=== PATIENT | male | born 2005 | race Caucasian/White ===

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

== ENCOUNTER 2025-04-04 10:08 | Emergency (ER) | payer BC, SELFPAY ==
[2025-04-04 10:19] VITALS: BP 120/72; PULSE 67; TEMP 36.7; O2SAT 100; BMI 27.8
--- OUTSIDE RECORDS SUMMARY | 2025-04-04 10:21 | XMS_ITS | Clinical Summary ---
Author Organization [facility] Address [address] [place] [address] Care Team Providers Care Gamma Facilities Operator Name Role Phone Monie Milian NP Unavailable [phone] Barry Nieto MD Primary Care Provider [phone] Allergies No known active allergies Medications albuterol HFA 90 mcg/act inhaler Inhale 2 puffs every 6 (six) hours if needed for wheezing or shortness of breath (and 15 minutes prior to physical activity) Active Active Problems Problem Noted Date Diagnosed Date Seasonal allergic rhinitis due to pollen 024 IVET (generalized anxiety disorder) 09/28/2023 Vitamin D deficiency 09/28/2023 Obesity (BMI 30-39.9) 09/28/2023 Annual physical exam 09/28/2023 Assessment & Plan (04/19/2024 12:10 PM EDT): Form completed. Discussed proper diet and regular aerobic exercise. Need aerobic exercise 5-6 days a week for 30 minutes at a time. Smaller portions and limit total calories. Colonoscopy after age 45. Tetanus every 10 years. Advised not to smoke. Assessment & Plan (09/28/2023 2:42 PM EST): Reviewed Ht/Wt/BMI Recommend eye exam yearly Recommend dental exams twice a year Balance work/leisure activities Exercises is recommended most days of the week (appropriate as chronic conditions allow) Follow up yearly and prn Lesion of skin of nose 09/28/2023 Assessment & Plan (09/28/2023 2:44 PM EST): Pt reports this has been present over a year, and is getting larger It appears to look like a white head , however pt states when attempts to express something out with squeezing it, nothing comes out Family is requesting a referral to dermatology Resolved Problems Problem Noted Date Diagnosed Date Resolved Date Elevated CPK 09/28/2023 09/28/2023 Knee pain, right anterior 09/28/2023 Family History Medical History Relation Name Comments No Known Problems Father No Known Problems Mother Relation Name Status Comments Father Mother Social History Tobacco Use Types Packs/Day Years Used Date Smoking Tobacco: Never Tobacco Cessation:Counseling Given: Not Answered PHQ-2 Answer Date Recorded Patient Health Questionnaire-2 Score 0 09/28/2023 Sex and Gender Information Value Date Recorded Sex Assigned at Not on file Legal Sex Male 8:28 PM EDT Gender Identity Not on file Sexual Orientation Not on file Last Filed Vital Signs Vital Sign Reading Time Taken Comments Blood Pressure 116/52 04/19/2024 11:36 AM EDT Pulse 70 04/19/2024 11:36 AM EDT Temperature 36.4 C (97.5 F) 04/19/2024 11:36 AM EDT Respiratory Rate 20 04/19/2024 11:36 AM EDT Oxygen Saturation 98% 04/19/2024 11:36 AM EDT Inhaled Oxygen Concentration - - Weight 89.8 kg (198 lb) 04/19/2024 11:36 AM EDT Height 175.3 cm (5' 9 ) 04/19/2024 11:36 AM EDT Body Mass Index 29.24 04/19/2024 11:36 AM EDT Body Mass Index Percentile 94.85% 04/19/2024 11: 36 AM EDT Growth Chart: CDC (Boys, 2-2 0 Years) Plan of Treatment Health Maintenance Due Date Last Done Comments Influenza Vaccine Discontinued Insurance BS BS Care Teams Gamma Facilities Operator Relationship Specialty Start Date End Date Barry Nieto MD PCP - General Family Medicine 09/18/23 Monie Milian NP Nurse Practitioner Family Medicine 09/18/23
--- OUTSIDE RECORDS SUMMARY | 2025-04-04 10:21 | XMS_ITS | Encounter Summary ---
Author Organization [facility] Address [address] [place] [address] Care Team Providers Care Methods Specialist Name Role Phone Monie Milian NP Unavailable [phone] Barry Nieto MD Primary Care Provider [phone] Barry Nieto MD Unavailable Encounter Details Date Type Department Care Team (Late st Contact Info) Description 07/14/2024 Orders Only [facility] [address] [place] [address] Azael Mendoza MD [address] [place] [address] Social History Tobacco Use Types Packs/Day Years Used Date Smoking Tobacco: Never PHQ-2 Answer Date Recorded Patient Health Questionnaire-2 Score 0 09/28/2023 Sex and Gender Information Value Date Recorded Sex Assigned at Not on file Legal Sex Male 8:28 PM EDT Gender Identity Not on file Sexual Orientation Not on file documented as of this encounter Plan of Treatment Not on file documented as of this encounter Procedures Procedure Name Priority Date/Time Associated Diagnosis Comments XR HAND 3+ VIEWS LEFT Routine 07/13/2024 8:41 AM EST documented in this encounter Results * XR hand 3+ views left (07/13/2024 8:41 AM EST) Anatomical Region Laterality Modality Upper Extremities, Hand Left Radiogra phic Imaging Azael Mendoza MD IMG XR PROCEDURES Final Resul t documented in this encounter Visit Diagnoses Not on filedocumented in this encounter Care Teams Methods Specialist Relationship Specialty Start Date End Date Barry Nieto MD PCP - General Family Medicine 09/18/23 Barry Nieto MD [address] [place] [address] PCP - [facility] 05/27/24 Monie Milian NP Nurse Practitioner Family Medicine 09/18/23 documented as of this encounter
--- OUTSIDE RECORDS SUMMARY | 2025-04-04 10:30 | XMS_ITS | CCD ---
Author Organization [facility] Care Team Providers Care Vocal Music Teacher Name Role Phone MD Barry Rodriguez Primary Care Provider [phone] DO Oleg Booth Emergency Provider [phone] Leandra Belle Unavailable MARKER, DR ROWE Attending Unavailable MARKER, DR ROWE Consulting Unavailable NADERER, DR BARRY Wesley Primary Care Unavailable MARKER, DR ROWE Admitting Unavailable AICHHOLZ, MONTY DACOSTA Admitting Unavailable NADERER, DR BARRY Wesley Primary Care Unavailable AICHKYARA, MONTY DACOSTA Attending Unavailable AICHKYARA, MONTY DACOSTA Consulting Unavailable JENNIFER, DR BARRY Wesley Primary Care Unavailable SHERRILL, DR JOLYNN Diaz Admitting Unavailable SHERRILL, DR JLOYNN Diaz Attending Unavailable SHERRILL, DR JOLYNN Diaz Consulting Unavailable ROSLYN, DR CASTILLO Diaz Consulting Unavailable Tesha Negron Unavailable MONIE MILIAN Attending Unavailable NADEREEmily, BARRY Attending Unavailable Aichholmarko TOOL AND CUTTER GRINDER, Monie Unavailable Barry Rodriguez MD Primary Care Provider Rukhsana TOOL AND CUTTER GRINDER, Monie Unavailable Medications Current Medications Medication Drug Class(es) Dates Sig (Normalized) Sig (Original) [id number] 200 actuat albuterol 0.09 mg/actuat metered dose inhaler (3 sources) beta2-Adrenergic Agonist take 2 puff(s) by inhalation every six hours for wheezing albuterol HFA 90 mcg/act inhaler Inhale 2 puffs every 6 (six) hours if needed for wheezing or shortness of breath (and 15 minutes prior to physical activity) Active diphenhydrAMINE (1 source) Histamine-1 Receptor Antagonist Benadryl Active [id number] 0.3 ml EPINEPHrine 1 mg/ml auto-injector (1 [...] with dinner for 6 days Jan, Active Completed/Discontinued Medications Medication Drug Class(es) Dates Sig (Normalized) Sig (Original) fluticasone propionate 0.05 mg/actuat metered dose nasal spray (1 source) Corticosteroid Start: 11-05-2023 End: 01-03-2025 take 1 spray(s) nasal route once daily Fluticasone Propionate 50 mcg/actuation spray,suspension Discontinued 2 SPRAY INTRANASAL Daily November 05, 2023 12:00am January 03, 2025 12:10pm administer into each nostril predniSONE 20 mg oral tablet (3 sources) Start: 11-05-2023 End: 01-03-2025 take 1 tablet by mouth twice daily Prednisone 20 mg tablet Discontinued 20 MG PO Twice daily 04 30November 05, 2023 12:00am January 03, 2025 12:10pm Start: 11-03-2022 prednisone 10 MG as directed with food Orally 5 tablet x 2 days, 4 tablet x2 days, 3 tablet x2 days, 2 tablet x 2 days, 1 tablet x 2 days for 10 days Oct, Active Start: 02-25-2022 take 1 tablet by zaheer once daily, then take 1 tablet by mouth once daily at mealtime predniSONE 20 MG 60 mg daily for 3 days then 40mg daily for 3 days then 1 tablet daily for 3 days then 20mg daily fo Orally take with food for 9 days Feb, Active triamcinolone acetonide 40 mg/ml injectable suspension (4 sources) Corticosteroid Start: 02-20-2022 Kenalog-40 Jan, 40 mg Problems Active Problems Problem Classification Problem Date Documented Da te Episodic/Chronic Administrative/social admission (1 source) Encounter for pre-employment examination Episodic Anxiety disorders (3 sources) Generalized anxiety disorder; Translations: [Generalized anxiety disorder] Onset: 09-28-2023 09-28-2023 Chronic Nutritional deficiencies (3 sources) Vitamin D deficiency; Translations: [Vitamin D deficiency, unspecified] Onset: 09-28-2023 09-28-2023 Chronic Other nutritional; endocrine; and metabolic disorders (3 sources) Body mass index 30+ - obesity; Translations: [Obesity, unspecified] Onset: 09-28-2023 09-28-2023 Chronic Other skin disorders (1 source) Rash and other nonspecific skin eruption Episodic Other upper respiratory disease (3 sources) Allergic rhinitis due to pollen; Translations: [Allergic rhinitis due to pollen] Onset: 09-28-2023 09-28-2023 Chronic Other upper respiratory infections (1 source) Sore throat symptom; Translations: [Acute pharyngitis, unspecified] 11-05-2023 Episodic Past or Other Problems Problem Classification [...] Episodic E Codes: Unspecified (1 source) Activity, brazilian tackle football; Translations: [ACTIVITY FRENCH TACKLE FOOTBALL] Onset: 05-17-2021 Episodic Fever of unknown origin (1 source) Fever, unspecified; Translations: [FEVER UNSPECIFIED] Onset: 05-17-2021 Episodic Other liver diseases (3 sources) Increased creatine kinase level; Translations: [Abnormal levels of other serum enzymes] Onset: 09-28-2023 Resolved: 09-28-2023 09-28-2023 Episodic Other non-traumatic joint disorders (3 sources) Anterior knee pain; Translations: [Pain in right knee] Onset: 09-28-2023 09-28-2023 Episodic Other skin disorders (3 sources) Lesion of skin of nose; Translations: [Disorder of the skin and subcutaneous tissue, unspecified] Onset: 09-28-2023 09-28-2023 Episodic Spondylosis; intervertebral disc disorders; other back problems (3 sources) Cervicalgia; Translations: [CERVICALGIA] Onset: 05-16-2021 Episodic Sprains and strains (2 sources) Sprain of joints and ligaments of unspecified parts of neck, initial encounter; Translations: [Strain of muscle, fascia and tendon at neck level, initial encounter] Onset: 05-16-2021 Episodic Results Test Name Value Interpretation Reference Range Facility No Panel InformationOrdered By: Alisia Guevara on 01-03-2025 Quick Strep (POC) [facility] ALDOLASEon 02-21-2022 Aldolase 8.2 U/L Normal 3.3-10.3 [facility] Comment on above: Performed By: #### A LDOLAS #### [facility] [address] [place] [address] Dr. Facundo Regalado ANTISTREPTOLYSIN O AB (ASO)o n 02-21-2022 Antistreptolysin O Ab 22.3 IU/mL Normal 0.0-200.0 [facility] Comment on above: Performed By: #### C MP, CK, CRP, URIC #### [facility] [address] [place] [address] Dr. Facundo Regalado RHEUMATOID FACTORon 02-22-20 RA Latex Turbid. <10.0 Normal <14.0 [facility] Comment on above: Performed By: #### C MP, CK, CRP, URIC #### [facility] [address] [place] [address] Dr. Facundo Regalado CBC AUTO DIFFon 02-19-2022 BASO # 0.1 103/ul Normal 0.0-0.1 [facility] Comment on above: Performed By: #### C BC #### [facility] [address] [place] [address] Dr. Facundo Regalado Basophils/100 WBC (Bld) 0.7 % Normal 0.2-2.0 [facility] Comment on above: Performed By: #### C BC #### [facility] [address] [place] [address] Dr. Facundo Regalado EO # 0.2 103/ul Normal 0.0-0.7 [facility] Comment on above: Performed By: #### C BC #### [facility] [address] [place] [address] Dr. Facundo Regalado Eosinophils/100 WBC (Bld) 2.6 % Normal 0.9-7.0 [facility] Comment on above: Performed By: #### C BC #### [facility] [address] [place] [address] Dr. Facundo Regalado Erythrocyte distribution width (RBC) [Ratio] 13.3 % Normal 11.0-15.0 [facility] Comment on above: Performed By: #### C BC #### [facility] [address] [place] [address] Dr. Facundo Regalado Hematocrit (Bld) [Volume fraction] 40.6 % Critically low 42.0-54.0 [facility] Comment on above: Performed By: #### C BC #### [facility] [address] [place] [address] Dr. Facundo Regalado Hemoglobin (Bld) [Mass/Vol] 13.7 g/dL Critically low 14.0-18.0 [facility] Comment on above: Performed By: #### C BC #### [facility] [address] [place] [address] Dr. Facundo Regalado IG # 0.01 10e3/ul Normal 0.00-0.[address] [facility] Comment on above: Performed By: #### C BC #### [facility] [address] [place] [address] Dr. Facundo Regalado IG % 0.1 % Normal 0.0-0.[address] [facility] Comment on above: Performed By: #### C BC #### [facility] [address] [place] [address] Dr. Facundo Regalado LYMPH # 2.3 103/ul Normal 1.2-3.[address] [facility] Comment on above: Performed By: #### C BC #### [facility] [address] [place] [address] Dr. Facundo Regalado Lymphocytes/100 WBC (Bld) 31.6 % Normal 20.5-60.0 [facility] Comment on above: Performed By: #### C BC #### [facility] [address] [place] [address] Dr. Facundo Regalado MANUAL DIFF REQ NO Normal [facility] Comment on above: Performed By: #### C BC #### [facility] [address] [place] [address] Dr. Facundo Regalado MCH (RBC) [Entitic mass] 26.8 pg Normal 25.9-34.0 [facility] Comment on above: Performed By: #### C BC #### [facility] [address] [place] [address] Dr. Facundo Regalado MCHC (RBC) [Mass/Vol] 33.7 g/dL Normal 29.9-35.2 [facility] Comment on above: Performed By: #### C BC #### [facility] [address] [place] [address] Dr. Facundo Regalado MCV (RBC) [Entitic vol] 79.5 fL Normal 76.3-90.1 [facility] Comment on above: Performed By: #### C BC #### [facility] [address] [place] [address] Dr. Facundo Regalado MONO # 0.7 103/ul Normal 0.3-0.8 [facility] Comment on above: Performed By: #### C BC #### [facility] [address] [place] [address] Dr. Facundo Regalado Monocytes/100 WBC (Bld) 10.1 % Normal 1.7-12.0 [facility] Comment on above: Performed By: #### C BC #### [facility] [address] [place] [address] Dr. Facundo Regalado NEUT # 4.0 103/ul Normal 1.4-6.5 [facility] Comment on above: Performed By: #### C BC #### [facility] [address] [place] [address] Dr. Facundo Regalado Neutrophils/100 WBC (Bld) 54.9 % Normal 43.0-75.0 [facility] Comment on above: Performed By: #### C BC #### [facility] [address] [place] [address] Dr. Facundo Regalado Platelet mean volume (Bld) [Entitic vol] 9.3 fL Critically low 9.5-13.5 [facility] Comment on above: Performed By: #### C BC #### [facility] [address] [place] [address] Dr. Facundo Regalado PLT 309 103/ul Normal 150-[address] [facility] Comment on above: Performed By: #### C BC #### [facility] [address] [place] [address] Dr. Facundo Regalado RBC 5.11 106/ul Normal 3.30-5.40 [facility] Comment on above: Performed By: #### C BC #### [facility] [address] [place] [address] Dr. Facundo Regalado WBC 7.3 103/ul Normal 4.0-11.0 [facility] Comment on above: Performed By: #### C BC #### [facility] [address] [place] [address] Dr. Facundo Regalado CKMBon 02-19-2022 CK.MB [Mass/Vol] 3.96 ng/mL Critically high <=3.[address] [facility] Comment on above: Performed By: #### C KMB, HSTROPN, MARY #### [facility] [address] [place] [address] Dr. Facundo Regalado CPKon 02-19-2022 CK [Catalytic activity/Vol] 604 U/L Critically high 39-308 [facility] Comment on above: Performed By: #### C MP, CK, CRP, URIC #### [facility] [address] [place] [address] Dr. Facundo Regalado CRPon 02-19-2022 CRP [Mass/Vol] mg/L Normal <=1.0 [facility] Comment on above: Performed By: #### C MP, CK, CRP, URIC #### [facility] [address] [place] [address] Dr. Facundo Regalado MYOGLOBINon 02-19-2022 MARY 82 ng/mL Normal 16-[address] [facility] Comment on above: Performed By: #### C KMB, HSTROPN, MARY #### [facility] [address] [place] [address] Dr. Facundo Regalado PROF 14(COMP METB)on 022 Albumin [Mass/Vol] 4.2 g/dL Normal 3.4-5.0 [facility] Comment on above: Performed By: #### C MP, CK, CRP, URIC #### [facility] [address] [place] [address] Dr. Facundo Regalado Albumin/Globulin [Mass ratio] 1.4 {ratio} Normal [facility] Comment on above: Performed By: #### C MP, CK, CRP, URIC #### [facility] [address] [place] [address] Dr. Facundo Regalado ALP [Catalytic activity/Vol] 129 U/L Normal 65-260 [facility] Comment on above: Performed By: #### C MP, CK, CRP, URIC #### [facility] [address] [place] [address] Dr. Facundo Regalado ALT [Catalytic activity/Vol] 37 U/L Normal 16-63 [facility] Comment on above: Performed By: #### C MP, CK, CRP, URIC #### [facility] [address] [place] [address] Dr. Facundo Regalado Anion gap [Moles/Vol] 11.6 mmol/L Normal [facility] Comment on above: Performed By: #### C MP, CK, CRP, URIC #### [facility] [address] [place] [address] Dr. Facundo Regalado AST [Catalytic activity/Vol] 33 U/L Normal 15-37 [facility] Comment on above: Performed By: #### C MP, CK, CRP, URIC #### [facility] [address] [place] [address] Dr. Facundo Regalado Bilirubin [Mass/Vol] 0.3 mg/dL Normal 0.2-1.0 [facility] Comment on above: Performed By: #### C MP, CK, CRP, URIC #### [facility] [address] [place] [address] Dr. Facundo Regalado Calcium [Mass/Vol] 9.0 mg/dL Normal 8.5-10.1 [facility] Comment on above: Performed By: #### C MP, CK, CRP, URIC #### [facility] [address] [address] [address] Facundo Regalado Chloride [Moles/Vol] 104 mmol/L Normal 98-[address] [facility] Comment on above: Performed By: #### C MP, CK, CRP, URIC #### [facility] [address] [place] [address] Dr. Facundo Regalado CO2 [Moles/Vol] 27.2 mmol/L Normal 21.0-32.0 [facility] Comment on above: Performed By: #### C MP, CK, CRP, URIC #### [facility] [address] [place] [address] Dr. Facundo Regalado Creatinine [Mass/Vol] 1.03 mg/dL Normal 0.70-1.30 [facility] Comment on above: Performed By: #### C MP, CK, CRP, URIC #### [facility] [address] [address] [address] Facundo Regalado Globulin (S) [Mass/Vol] 3.1 g/dL Normal T [facility] Comment on above: Performed By: #### C MP, CK, CRP, URIC #### [facility] [address] [place] [address] Dr. Facundo Regalado Glucose [Mass/Vol] 75 mg/dL Normal 74-106 [facility] Comment on above: Performed By: #### C MP, CK, CRP, URIC #### [facility] [address] [place] [address] Dr. Facundo Regalado Potassium [Moles/Vol] 3.8 mmol/L Normal 3.5-5.[address] [facility] Comment on above: Performed By: #### C MP, CK, CRP, URIC #### [facility] [address] [place] [address] Dr. Facundo Regalado Protein [Mass/Vol] 7.3 g/dL Normal 6.4-8.2 [facility] Comment on above: Performed By: #### C MP, CK, CRP, URIC #### [facility] [address] [address] [address] Facundo Regalado Sodium [Moles/Vol] 139 mmol/L Normal 136-145 [facility] Comment on above: Performed By: #### C MP, CK, CRP, URIC #### [facility] [address] [place] [address] Dr. Facundo Regalado Urea nitrogen [Mass/Vol] 19.0 mg/dL Normal 6.4-19.3 [facility] Comment on above: Performed By: #### C MP, CK, CRP, URIC #### [facility] [address] [place] [address] Dr. Facundo Regalado Urea nitrogen/Creatinine [Mass ratio] 18.4 mg/mg Normal [facility] Comment on above: Performed By: #### C MP, CK, CRP, URIC #### [facility] [address] [place] [address] Dr. Facundo Regalado [facility] SED [facility]ATE 15 mm/hr Normal <=15 [facility] Comment on above: Performed By: #### C MP, CK, CRP, URIC #### [facility] [address] [place] [address] Dr. Facundo Regalado TROPONIN, HIGH SENSITIVITYon 02-19-2022 HSTROP 5.9 pg/mL Normal 4.0-76.1 [facility] Comment on above: Result Comment: CUT- OFF POINTS HAVE BEEN ESTABLISHED BASED ON THE FOURTH UNIVERSAL DEFINITIONS OF MYOCARDIAL INFARCTION. THE UPPER REFERENCE LIMIT (URL) OF TROPONIN, DEFINED THE 99TH PERCENTILE OF cTnI DISTRIBUTION IN A REFERENCE POPULATION, HAS BEEN CONFIRMED THE DECISION THRESHOLD FOR NE DIAGNOSIS. Performed By: #### C KMB, HSTROPN, MARY #### [facility] [address] [place] [address] Dr. Facundo Regalado URIC ACID SERUMon 02-19-2022 Urate [Mass/Vol] 7.0 mg/dL Normal 3.5-7.2 [facility] Comment on above: Performed By: #### C MP, CK, CRP, URIC #### [facility] [address] TERESA CHOWDARYon CT TERESA WO CON EXAMINATION: CT TERESA PRINCE CON HISTORY: Injury of neck ; cervical [...] by: CASTILLO MCGOWAN Date: 2021-05-14 20:[address] [facility] Vital Signs Date Time Vital Sign Value Performing Clinician Facility 01-03-2025 12:09-0400 Body temperature 98.5 [degF] [facility] 01-03-2025 12:09-0400 Diastolic blood pressure 70 mm[Hg] [facility] 01-03-2025 12:09-0400 Heart rate 72 /min [facility] 01-03-2025 12:09-0400 SaO2% (BldA) [Mass fraction] 97 % [facility] 01-03-2025 12:09-0400 Systolic blood pressure 122 mm[Hg] [facility] 04-19-2024 11:36-0400 Body height 175.3 cm Barry Rodriguez MD Work Phone: [facility] 04-19-2024 11:36-0400 Body mass index (BMI) [Percentile] Per age and sex 94.85 % Barry Rodriguez MD Work Phone: [facility] 04-19-2024 11:36-0400 Body mass index (BMI) [Ratio] 29.24 kg/m2 Barry Rodriguez MD Work Phone: [facility] 04-19-2024 11:36-0400 Body temperature 97.5 [degF] Barry Rodriguez MD Work Phone: [facility] 04-19-2024 11:36-0400 Body weight 89.81 kg Barry Rodriguez MD Work Phone: [facility] 04-19-2024 11:36-0400 Diastolic blood pressure 52 mm[Hg] Barry Rodriguez MD Work Phone: [facility] 04-19-2024 11:36-0400 Heart rate 70 /min Barry Rodriguez MD Work Phone: [facility] 04-19-2024 11:36-0400 Respiratory rate 20 /min Barry Rodriguez MD Work Phone: [facility] 04-19-2024 11:36-0400 SaO2% (BldA) [Mass fraction] 98 % Barry Rodriguez MD Work Phone: [facility] 04-19-2024 11:36-0400 Systolic blood pressure 116 mm[Hg] Barry Rodriguez MD Work Phone: [facility] 12-27-2022 13:35-0400 Body height 173.35 cm Leandra Belle Other [email or web address] Other 12-27-2022 13:35-0400 Body mass index (BMI) [Ratio] 29.79 kg/m2 Leandra Belle Other [email or web address] Other 12-27-2022 13:35-0400 Body weight 89.54 kg Leandra Belle Other [email or web address] Other 12-27-2022 13:35-0400 Diastolic blood pressure 53 mm[Hg] Leandra Belle Other [email or web address] Other 12-27-2022 13:35-0400 Respiratory rate 18 /min Leandra Belle Other [email or web address] Other 12-27-2022 13:35-0400 SaO2% (BldA) [Mass fraction] 99 % Leandra Belle Other [email or web address] Other 12-27-2022 13:35-0400 Systolic blood pressure 122 mm[Hg] Leandra Belle Other [email or web address] Other 11-03-2022 18:20-0400 Body height 175.26 cm Leandra Belle Other [email or web address] Other 11-03-2022 18:20-0400 Body mass index (BMI) [Ratio] 30.57 kg/m2 Leandra Belle Other [email or web address] Other 11-03-2022 18:20-0400 Body temperature 100.3 [degF] Leandra Belle Other [email or web address] Other 11-03-2022 18:20-0400 Body weight 93.9 kg Leandra Belle Other [email or web address] Other 11-03-2022 18:20-0400 Respiratory rate 18 /min Leandra Belle Other [email or web address] Other 11-03-2022 18:20-0400 SaO2% (BldA) [Mass fraction] 97 % Leandra Belle Other [email or web address] Other 02-25-2022 19:00-0400 Body height 172.72 cm Tesha Negron Other [email or web address] Other 02-25-2022 19:00-0400 Body mass index (BMI) [Ratio] 29.65 kg/m2 Tesha Negron Other [email or web address] Other 02-25-2022 19:00-0400 Body temperature 98.8 [degF] Tesha Negron Other [email or web address] Other 02-25-2022 19:00-0400 Body weight 88.45 kg Tesha Negron Other [email or web address] Other 02-25-2022 19:00-0400 Diastolic blood pressure 65 mm[Hg] Tesha Negron Other [email or web address] Other 02-25-2022 19:00-0400 Respiratory rate 18 /min Tesha Negron Other [email or web address] Other 02-25-2022 19:00-0400 SaO2% (BldA) [Mass fraction] 98 % Tesha Negron Other [email or web address] Other 02-25-2022 19:00-0400 Systolic blood pressure 108 mm[Hg] Tesha Negron Other [email or web address] Other 02-20-2022 17:15-0400 Body height 172.72 cm Leandra Belle Other [email or web address] Other 02-20-2022 17:15-0400 Body mass index (BMI) [Ratio] 30.25 kg/m2 Leandra Belle Other [email or web address] Other 02-20-2022 17:15-0400 Body temperature 99 [degF] Leandra Belle Other [email or web address] Other 02-20-2022 17:15-0400 Body weight 90.27 kg Leandra Belle Other [email or web address] Other 02-20-2022 17:15-0400 Diastolic blood pressure 56 mm[Hg] Leandra Belle Other [email or web address] Other 02-20-2022 17:15-0400 Respiratory rate 18 /min Leandra Belle Other [email or web address] Other 02-20-2022 17:15-0400 SaO2% (BldA) [Mass fraction] 99 % Leandra Belle Other [email or web address] Other 02-20-2022 17:15-0400 Systolic blood pressure 112 mm[Hg] Leandra Belle Other [email or web address] Other 05-15-2021 23:35-0400 Body height 172.72 cm MD Barry Rodriguez Work Phone: [facility] 05-15-2021 23:35-0400 Body mass index (BMI) [Percentile] Per age and sex 97.7 % MD Barry Rodriguez Work Phone: [facility] 05-15-2021 23:35-0400 Body mass index (BMI) [Ratio] 30.1 kg/m2 MD Barry Rodriguez Work Phone: [facility] 05-15-2021 23:35-0400 Body temperature 99.2 [degF] MD Barry Rodriguez Work Phone: [facility] 05-15-2021 23:35-0400 Body weight 89.81 kg MD Barry Rodriguez Work Phone: [facility] 05-15-2021 23:35-0400 Diastolic blood pressure 72 mm[Hg] MD Barry Rodriguez Work Phone: [facility] 05-15-2021 23:35-0400 Heart rate 117 /min MD Barry Rodriguez Work Phone: [facility] 05-15-2021 23:35-0400 Respiratory rate 20 /min MD Barry Rodriguez Work Phone: [facility] 05-15-2021 23:35-0400 SaO2% (BldA) [Mass fraction] 100 % MD Barry Rodriguez Work Phone: [facility] 05-15-2021 23:35-0400 Systolic blood pressure 120 mm[Hg] MD Barry Rodriguez Work Phone: [facility] Encounters Encounter Date Encounter Type Care Provider Facility Start: 01-03-2025 End: 01-03-2025 ambulatory [facility] Work Phone: Start: 01-03-2025 End: 01-03-2025 Patient encounter procedure [facility] Work Phone: Start: 04-19-2024 End: 04-19-2024 Bamboo flowsheet Barry Rodriguez MD Work Phone: [facility] Start: 04-19-2024 End: 04-19-2024 Bamboo flowsheet Barry Rodriguez MD Work Phone: [facility] Start: 04-19-2024 End: 04-19-2024 Patient encounter procedure Barry Rodriguez MD Work Phone: [facility] Work Phone: Start: 04-19-2024 End: 04-19-2024 Periodic preventive med est patient 18-39 yrs Barry Rodriguez MD Work Phone: [facility] Comment on above: Annual physical exam (Primary Dx) Start: 04-19-2024 End: 04-19-2024 ambulatory BARRY RODRIGUEZ Not Available Start: 09-28-2023 End: 09-28-2023 ambulatory MONIE MILIAN Not Available Start: 09-28-2023 Patient encounter status Barry Rodriguez MD Work Phone: [facility] Start: 12-27-2022 End: 12-27-2022 ambulatory Leandra Belle Other [email or web address] Other Start: 12-27-2022 Office outpatient visit 25 minutes Leandra Belle [facility] Start: 11-03-2022 End: 11-03-2022 ambulatory Leandra Belle Other [email or web address] Other Start: 11-03-2022 Office outpatient visit 15 minutes Leandra Belle [facility] Start: 02-25-2022 End: 02-25-2022 ambulatory Tesha Jamil Other [email or web address] Other Start: 02-25-2022 Office outpatient visit 15 minutes Tesha Jamil [facility] Start: 02-20-2022 End: 02-20-2022 ambulatory Leandra Belle Other [email or web address] Other Start: 02-20-2022 Office outpatient ne w 30 minutes Leandra Belle [facility] Start: 02-19-2022 End: 02-20-2022 ambulatory MONTY DACOSTA [facility] Facility:H1 Start: 05-16-2021 End: 05-16-[address] JAE PARISH Facility:H1 Start: 05-15-2021 End: 05-15-2021 Emergency department patient visit MD Barry Rodriguez Work Phone: [facility] Start: 05-14-2021 End: 05-14-[address] BARRY RODRIGUEZ Facility:H1 Procedures Date Procedure Procedure Detail Performing Clinician Start: 01-03-2025 Quick Strep (POC) Plan of Treatment Date Care Activity Detail Author Start: 04-19-2024 End: 04-19-2024 Patient encounter procedure 04/19/2024 11:30 AM EDT Office Visit MARNIE SAAVEDRA [address] [place] [phone] Barry Rodriguez MD [address] [place] [phone] Arrived [facility] Comment on above: Arrived Patient referral [facility] Payers Date Payer Category Payer Unknown BCBS BCBS xxxxxx [id number] 2018-Present [phone] [address] [place] [address] [id number] 2005 Unknown [id number] 1983 Unknown [id number] 1983 Unknown [id number] 1983 Unknown [id number] 1983 Unknown [id number] 1959 Unknown [id number] Self-pay Self Pay [id number] Social History Date Type Detail Facility Start: 05-15-2021 End: 05-16-2021 Tobacco smoking status NHIS Never smoked tobacco (finding) [facility] Start: 2005 Sex Assigned At Male [facility] Start: 09-28-2023 End: 04-19-2024 Sex Assigned At [facility] Start: 09-28-2023 End: 04-19-2024 History of Social function [facility] Start: 2005 Sex assigned at Not on file N [facility] Start: 01-03-2025 Sex Male (finding) [facility] History of Present illness Narrative 04-19-2024 Barry Rodriguez MD - 04/19/2024 12:10 PM EDTMtee Rodriguez MD - 04/19/2024 11:30 AM EDT Note Date & Type Note Facility 04-19-2024 History of Presen t illness Narrative Associated Problem(s): Annual physical exam Form completed. Discussed proper diet and regular aerobic exercise. Need aerobic exercise 5-6 days a week for 30 minutes at a time. Smaller portions and limit total calories. Colonoscopy after age 45. Tetanus every 10 years. Advised not to smoke. Images from the original note were not included. Subjective Patient ID: Siddhartha Kimball is a 18 y.o. male who presents for Follow-up (Check up). Presents for annual wellness visit. Patient feels well today. Needs form completed for work. 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 Will start [employer] soon. Overall feels well and no concerns. Weight down 5 pounds. Active and exercises several days a week. Tries to watch diet and eat healthy. Increased fruits and vegetables. Smaller portions and limits snacking. Tries to limit total daily calories. Review of Systems Constitutional: Negative for fatigue. Respiratory: Negative for cough, shortness of breath and wheezing. Cardiovascular: Negative for chest pain and palpitations. Gastrointestinal: Negative for abdominal pain, diarrhea, nausea and vomiting. Genitourinary: Negative for dysuria. Objective Physical Exam Constitutional: General: He is not in acute distress. Appearance: Normal appearance. HENT: Head: Normocephalic. Right Ear: Tympanic membrane and ear canal normal. Left Ear: Tympanic membrane and ear canal normal. Eyes: Extraocular Movements: Extraocular movements intact. Pupils: Pupils are equal, round, and reactive to light. Cardiovascular: Rate and Rhythm: Normal rate and regular rhythm. Heart sounds: No murmur heard. No friction rub. No gallop. Pulmonary: Breath sounds: Normal breath sounds. No wheezing, rhonchi or rales. Abdominal: General: Bowel sounds are normal. There is no distension. Palpations: Abdomen is soft. Tenderness: There is no abdominal tenderness. There is no guarding or rebound. Musculoskeletal: General: Normal range of motion. Left lower leg: No edema. Neurological: General: No focal deficit present. Mental Status: He is alert. Cranial Nerves: No cranial nerve deficit. Deep Tendon Reflexes: Reflexes normal. Assessment/Plan Problem List Items Addressed This Visit Annual physical exam - Primary Form completed. Discussed proper diet and regular aerobic exercise. Need aerobic exercise 5-6 days a week for 30 minutes at a time. Smaller portions and limit total calories. Colonoscopy after age 45. Tetanus every 10 years. Advised not to smoke. documented in this encounter [facility] Evaluation note 12-27-2022 Note Date & Type [...] understanding and is agreeable with treatment plan [email or web address] Other Evaluation note 11-03-2022 Note Date & Type Note Facility 11-03-2022 Evaluation note Encounter Date Diagnosis Assessment Notes Oct, Rash and nonspecific skin eruption (ICD-10 - R21) Discussed diagnosis with father. Will send in rx of steroid to take as directed. Advised to take medications with food and plenty of water, complete entire course even if feeling better. Continue use of [id number] Benadryl to block histamine reaction. Patient instructed [...] understanding and is agreeable to treatment plan. [email or web address] Other Evaluation note 02-25-2022 Note Date & [...] treatment if you have to use it [email or web address] Other Evaluation note 02-20-2022 Note Date & [...] understanding and is agreeable to treatment plan [email or web address] Other Evaluation note Note Date & Type Note Facility Evaluation note No assessment information availa [facility] Evaluation note Note Date & Type Note Facility Evaluation note Diagnosis Annual physical exam- Primary Routine general medical examination at a health care facility documented in this encounter [facility] History general Narrative - Reported Note Date & Type Note Facility History general Narrative - Reported Type Medical History EXERCISE INDUCED ASTHMA Hospitalization History EEG [email or web address] Other Chief Complaint and Reason for Visit Chief Complaint fever Chief Complaint Admit Date cold/left ear clogged January 03, 2025 11 :43am Advance Directives Advance Directive Response Recorded Date/ Time Advance Directives No May 15, 2021 11:04pm Advance Directive Response Recorded Date/ Time Advance Directives No May 16, 2021 12:04am Summary Purpose Family History No Family History Records FoundNo Family History Records Found Additional Source Comments Goals (unrecognized section and content) Goals may be documented in a n alternate sectionNo InformationNo InformationNo InformationNo InformationGoals may be documented in an alternate section REASON FOR VISIT (unrecogniz ed section and content) Reason Comments Follow-up Check up (unrecognized sect ion and content) No Status Records FoundNo Status Records Found INFORMATION SOURCE (unrecogn ized section and content) DATE CREATED AUTHOR 02/22/2022 [facility] DATE CREATED AUTHOR AUTHOR'S ORGANIZ ATION 04/21/2024 [facility] EPIC Care Teams (unrecognized sec tion and content) Vocal Music Teacher Relationship Specialty Start Date End Date Barry Rodriguez MD [address] [place] [phone] PCP - General Family Medicine 09/18/23 Monie Milian NP [address] [place] [phone] PCP - [employer] 11/25/23 Monie Milian NP [address] [place] [phone] Nurse Practitioner Family Medicine 09/18/23 Vocal Music Teacher Relationship Specialty Start Date End Date Barry Rodriguez MD [address] [place] [phone] PCP - General Family Medicine 09/18/23 Monie Milian NP [address] [place] [phone] PCP - [facility] 11/25/23 Monie Milian NP [address] [place] [phone] Nurse Practitioner Family Medicine 09/18/23 Team Status: Active Member Role Status Dates Barry Rodriguez MD Primary Care Provider Active Team Status: Inactive Member Role Status Dates Barry Rodriguez MD Primary Care Provider Active S tart: January 03, 2025 End: January 03, 2025 Alisia Guevara PA-C Attending Provider Active St art: January 03, 2025 End: January 03, 2025 FOR RECORDS PERTAINING TO PATIENTS WHO ARE [...] BE BASED ON THE PRIMARY CLINICAL RECORDS. [employer] provides no warranty or guarantee of the accuracy or completeness of information in this document.
--- NOTE | 2025-04-04 10:31 | XR_ITS ---
The [place] [id number] Patient Name: SAMSON CLEMENTS MRN: [id number] date: 2005 Sex: M Assigned Patient Location: ER Current Patient Location: ER Accession/Order Number: [id number] Exam Date: 04/04/2025 10:36 Report Date: 04/04/2025 10:52 At the request of: ALFONSO GANDHI MD Procedure: XR ankle RT min 3V RIGHT ANKLE - 3 views CLINICAL DATA: Lateral right ankle pain since twisting injury 2 days ago. COMPARISON: A 15/09/2023 AP, lateral and oblique views were obtained. There is no evidence of fracture or dislocation. The talar dome is intact. Anterolateral soft tissue swelling is seen. XR/XR ankle RT min 3V IMPRESSION: NO ACUTE BONY INJURY. Impression dictated by: Judith Okeefe M.D. 04/04/2025 10:52 AM Dictation Location: [place] [address] Electronically authenticated by: [id number] Y Date: 04/04/2025 10:52
--- NOTE | 2025-04-04 10:32 | ED_ITS ---
HPI HPI - General Adult General Chief complaint: Extremity Injury, Lower Stated complaint: lower extremity injury - 04/02/2025 Time Seen by Provider: 04/04/25 10:15 Source: patient Mode of arrival: walk-in Limitations: no limitations History of Present Illness HPI narrative: 19-year-old male presented to the emergency department for pain in his right ankle. He points to the lateral malleolar area. The injury happened 2 days ago when he rolled his ankle playing football. No pain in the foot or medial malleolus. No other injury sustained. Related Data Previous Rx's ?Medication ?Instructions ?Recorded ibuprofen 800 mg tablet 800 mg PO Q8H PRN pain #20 t abs 04/04/25 Allergies Allergy/AdvReac Type Severity Reaction Status Date / Time No Known Drug Allergies Allergy Verified 04/04/25 10:18 Opioid HPI Opioid Management Most Recent Opioid Data: Last Pain Scale 2 Today, 10:25 Review of Systems ROS Narrative A ten point review of systems is negative except as noted above. PFSH PFSH Social History Little interest or pleasure in doing things: not at all Feeling down, depressed, or hopeless: not at all Exam Narrative Exam Narrative: Nurses note and vital signs reviewed and patient is not hypoxic. General: The patient appears well and in no apparent distress. Skin: Warm, dry, no pallor noted. There is no rash noted. Head: Normocephalic, atraumatic Eye: Normal conjunctiva, no drainage Ears, Nose, Mouth, and Throat: oral mucosa is moist. Nares patent. Cardiovascular: Regular Rate and Rhythm Respiratory: Patient is in no distress, no accessory muscle use, lungs are clear to auscultation, no wheezing, rales or rhonchi Back: non-tender, no CVA tenderness bilaterally to percussion. GI: Soft and nontender Musculoskeletal: He has bruising and some swelling at the lateral malleolus of his right ankle. The foot itself is nontender including the fifth metatarsal area. Skin intact. Neurological: A&O, normal speech Psychiatric: Cooperative Constitutional Vital Signs, click to edit/add: Last Vital Signs Temp 98.1 F 04/04/25 10:19 Pulse 67 04/04/25 10:19 Resp 16 04/04/25 10:19 BP 120/72 04/04/25 10:19 Pulse Ox 100 04/04/25 10:19 O2 Del Method Room Air 04/04/25 10:19 Course Vital Signs Vital signs: Vital Signs Temperature 98.1 F 04/04/25 10:19 Pulse Rate 67 04/04/25 10:19 Respiratory Rate 16 04/04/25 10:19 Blood Pressure 120/72 04/04/25 10:19 Pulse Oximetry 100 04/04/25 10:19 Oxygen Delivery Method Room Air 04/04/25 10:19 Temperature 98.1 F 04/04/25 10:19 Pulse Rate 67 04/04/25 10:19 Respiratory Rate 16 04/04/25 10:19 Blood Pressure 120/72 04/04/25 10:19 Pulse Oximetry 100 04/04/25 10:19 Oxygen Delivery Method Room Air 04/04/25 10:19 Medical Decision Making MDM Narrative Medical decision making narrative: X-ray is negative. He was offered crutches but does not feel that he needs them. Jose wrap applied, application checked by me and found to be appropriate, he is neurovascular intact. He was prescribed ibuprofen. Treatment diagnosis and follow-up were discussed with his mother. Differential Diagnosis Differential Diagnosis: Ankle sprain, ankle fracture Imaging Data Right ankle x-ray: Radiologist's impression: ITS Impressions Ankle X-Ray 04/04/25 10:31 IMPRESSION: NO ACUTE BONY INJURY. Impression dictated by: Judith Okeefe M.D. 04/04/2025 10:52 AM Dictation [facility] Electron[facility] authenticated by: [id number] Y Date: 04/04/2025 10:52 Discharge Plan Discharge Chief Complaint: Extremity Injury, Lower Clinical Impression: Right ankle sprain Patient Disposition: Home, Self-Care Time of Disposition Decision: 11:08 Condition: Good Mode of Transportation: Private Vehicle Prescriptions / Home Meds: New ibuprofen 800 mg tablet 800 mg PO Q8H PRN (Reason: pain) Qty: 20 0RF Print Language: Panamanian Referrals: Barry Nieto MD [Primary Care Provider, Family Practice] - 1 week
--- NOTE | 2025-04-04 11:11 | PC.NURSE ---
onel wrap applied to right ankle, pt tolerated well, pms intact pre and post onel application
== END 2025-04-04 11:13 | disposition home or self-care (01) ==
PROVIDERS: Emergency Provider Emergency Medicine; PCP Family Medicine
DX: S93.401A Sprain of unspecified ligament of right ankle, initial encounter (principal); X50.1XXA Overexertion from prolonged static or awkward postures, initial encounter; Y93.61 Activity, american tackle football
CPT/HCPCS: 73610; 99283

== ENCOUNTER 2025-07-23 17:14 | Emergency (ER) | payer BC, SELFPAY ==
[2025-07-23 17:52] VITALS: BP 130/80; PULSE 70; TEMP 37; O2SAT 98; BMI 28.1
--- NOTE | 2025-07-23 17:57 | XR_ITS ---
The [address] [address] Patient Name: SAMSON CLEMENTS MRN: [id number] date: 2005 Sex: M Assigned Patient Location: ER Current Patient Location: ER Accession/Order Number: [id number] Exam Date: 07/23/2025 18:04 Report Date: 07/23/2025 18:16 At the request of: ANGELLA ENGEL DO Procedure: XR ankle RT min 3V 3 views right ankle compared to prior examination 04/04/2025 HISTORY: Right ankle injury Lateral soft tissue swelling. Ankle mortise preserved. No acute displaced fracture. XR/XR ankle RT min 3V IMPRESSION: Lateral soft tissue swelling. No acute displaced fracture. Impression dictated by: Azael Parr M.D. 07/23/2025 6:16 PM Dictation Location: [place] [address] Electronically authenticated by: [id number] Y Date: 07/23/2025 18:16
--- OUTSIDE RECORDS SUMMARY | 2025-07-23 18:30 | XMS_ITS | CCD ---
Author Organization [facility] Care Team Providers Care Data Architect Name Role Phone MD Barry Nieto Primary Care Provider DO Oleg Booth Emergency Provider Leandra Belle Unavailable MARKER, DR ROWE Attending Unavailable MARKER, DR ROWE Consulting Unavailable NADERER, DR BARRY Wesley Primary Care Unavailable MARKER, DR ROWE Admitting Unavailable AICHHOLZ, MONTY DACOSTA Admitting Unavailable NADEREEmily, DR BARRY Wesley Primary Care Unavailable AICHKYARA, MONTY DACOSTA Attending Unavailable RUKHSANA, MONTY DACOSTA Consulting Unavailable JENNIFER, DR BARRY Wesley Primary Care Unavailable SHERRILL, DR JOLYNN Diaz Admitting Unavailable SHERRILL, DR JOLYNN Diaz Attending Unavailable SHERRILL, DR JOLYNN Diaz Consulting Unavailable ROSLYN, DR CASTILLO Diaz Consulting Unavailable Tesha Negron Unavailable MONIE MILIAN Attending Unavailable JENNIFER, BARRY Attending Unavailable Rukhsana APPLICATIONS INTERN, Monie Unavailable Barry Nieto MD Primary Care Provider Rukhsana APPLICATIONS INTERN, Monie Unavailable Bharti ARRIOLA Attending Unavailable Barry Nieto MD Primary Care Provider [phone] Rukhsana APPLICATIONS INTERN-C, Monie J Attending Provider [phone] Medications Current Medications MedicationDrug Class(es)DatesSig (Normalized)Sig (Original)[id number] 200 actuat albuterol 0.09 mg/actuat metered dose inhaler (4 sources)beta2-Adrenergic AgonistStart: 06-87-8554xooq 1 puff(s) by inhalation four times daily as neededAlbuterol Sulfate 90 mcg/actuation HFA aerosol inhaler Active 2 PUFF INHALATION Four times daily asneeded April 16, 2025 12:00am Complies with drug therapytake 2 puff(s) by inhalation every six hours for wheezingalbuterol HFA 90 mcg/act inhaler Inhale 2 puffs every 6 (six) hours if needed for wheezing or shortness of breath (and 15 minutes prior to physical activity) ActivediphenhydrAMINE (1 source)Histamine-1 Receptor AntagonistBenadryl Lungjekwo473169 0.3 ml EPINEPHrine 1 mg/ml auto-injector (1 source)alpha-Adrenergic Agonist, beta-Adrenergic Agonist, CatecholamineStart: 74-48-1516EbnQhj 2-Alex 0.3 MG/0.3ML as directed Injection as directed for 1 days Feb, ActiveIbuprofen (2 sources)Nonsteroidal Anti-inflammatory DrugIbuprofen ActivemethylPREDNISolone 4 mg oral tablet (1 source)CorticosteroidStart: 48-97-3712ivfhnaDRVNBKFdbpsp 4 MG as directed Orally for daily dose take half with breakfast, half with dinner for 6 days Jan, Active Completed/Discontinued Medications MedicationDrug Class(es)DatesSig (Normalized)Sig (Original)amoxicillin 875 mg oral tablet (1 source)Penicillin-class AntibacterialStart: 01-03-2025 End: 42-09-7129roht 1 tablet by mouth twice dailyAmoxicillin 875 mg tablet Discontinued 875 MG PO Twice daily 14 7 January 03, 2025 12:00am 2024 4:39pmfluticasone propionate 0.05 mg/actuat metered dose nasal spray (3 sources)CorticosteroidStart: 11-05-2023 End: 29-26-4731ssnz 1 spray(s) nasal route once dailyFluticasone Propionate (Flonase Allergy Relief) 50 mcg/actuation spray,suspension Discontinued 1 SPRAY INTRANASAL Daily January 03, 2025 12:00am April 16, 2025 4:39pm administer into each nostrilpredniSONE 20 mg oral tablet (4 sources)Start: 11-05-2023 End: 80-63-9192npiw 1 tablet by mouth twice dailyPrednisone 20 mg tablet Discontinued 20 MG PO Twice daily 10 November 05, 2023 12:00am January 03, 2025 12:10pmStart: 44-27-5951imeippqrmw 10 MG as directed with food Orally 5 tablet x 2 days, 4 tablet x2 days, 3 tablet x2 days, 2 tablet x 2 days, 1 tablet x 2 days for 10 days Oct, ActiveStart: 40-04-8192jqdy 1 tablet by mouth once daily, then take 1 tablet by mouth once daily at mealtimepredniSONE 20 MG 60 mg daily for 3 days then 40mg daily for 3 days then 1 tablet daily for 3 days then 20mg daily fo Orally take with food for 9 days Feb, Activetriamcinolone acetonide 40 mg/ml injectable suspension (4 sources)CorticosteroidStart: 48-31-0695Eygdbzs-40 Jan, 40 mg Problems Active Problems Problem ClassificationProblemDateDocumented DateEpisodic/Chronic Administrative/social admission (1 source)Encounter for pre-employment examinationEpisodicAnxiety disorders (4 sources)Generalized anxiety disorder; Translations: [Generalized anxiety disorder]Onset: 995583-51-4953XgcjalyRbmrixxylwu deficiencies (4 sources)Vitamin D deficiency; Translations: [Vitamin D deficiency, unspecified]Onset: 505254-95-8976DmaxbdfXwdqi nutritional; endocrine; and metabolic disorders (3 sources)Body mass index 30+ - obesity; Translations: [Obesity, unspecified] Onset: 323407-41-3499JddinwkRdums nutritional; endocrine; and metabolic disorders (2 sources)Body mass index 25-29 - overweight; Translations: [Overweight] 18-02-4349ErxkwlrwOsmbe skin disorders (1 source)Rash and other nonspecific skin eruptionEpisodicOther skin disorders (4 sources)Lesion of skin of nose; Translations: [Disorder of the skin and subcutaneous tissue, unspecified]Onset: 610950-32-0633WfelfweeHfngj upper respiratory disease (3 sources)Allergic rhinitis due to pollen; Translations: [Allergic rhinitis due to pollen]Onset: 972483-75-6803JscdkdyPvrjw upper respiratory disease (1 source)Seasonal allergy; Translations: [Other seasonal allergic rhinitis] 57-54-0121SfzegfsTtbgu upper respiratory infections (3 sources)Sore throat symptom; Translations: [Acute pharyngitis, unspecified] 38-63-6953Xkxsmbwr Past or Other Problems Problem ClassificationProblemDateDocumented DateEpisodic/ChronicAllergic reactions (3 sources)Allergic contact dermatitis due to plants, except food; Translations: [Other urticaria]Onset: 02-20-2022 Resolved: 35-83-4099EbgrxjcmE Codes: Struck by; against (2 sources)Accidental striking against or bumped into by another person, initial encounter; Translations: [Striking against or struck by unspecified sports equipment, initial encounter]Onset: 71-94-9071HoxpmbgkL Codes: Unspecified (1 source)Activity, gibraltarian tackle football; Translations: [ACTIVITY NAURUAN TACKLE FOOTBALL]Onset: 15-84-9641YhupkqwsNkcst of unknown origin (1 source)Fever, unspecified; Translations: [FEVER UNSPECIFIED]Onset: 05-17-2021 EpisodicOther liver diseases (3 sources)Increased creatine kinase level; Translations: [Abnormal levels of other serum enzymes]Onset: 09-28-2023 Resolved: 458032-18-6678PfzbotfgXcpha non-traumatic joint disorders (3 sources)Anterior knee pain; Translations: [Pain in right knee]Onset: 269374-66-9814IjgvcbtpNgimifuyfut; intervertebral disc disorders; other back problems (3 sources)Cervicalgia; Translations: [CERVICALGIA]Onset: 71-43-4361Auyhaycr Sprains and strains (2 sources)Sprain of joints and ligaments of unspecified parts of neck, initial encounter; Translations: [Strain of muscle, fascia and tendon at neck level, initial encounter]Onset: 06-36-8814Pcerkqdd Results Test NameValueInterpretationReference RangeFacilityNo Panel InformationOrdered By: Alisia Guevara on 94-46-6015Hjtpx Strep (POC)[facility] ALDOLASEon 92-50-4343Quzyigrj3.2 U/LNormal3.3-10.3The [facility] HospitalComment on above:Performed By: #### WENDY #### [facility] [address] [place] [address] Dr. Facundo RegaladoANTISTREPTOLYSIN O AB (ASO)on 08-31-3521Luzurdoytgmnqrps O Ab22.3 IU/mLNormal0.0-200.0The [facility] HospitalComment on above:Performed By: #### CMP, CK, CRP, URIC #### [facility] [address] [place] [address] Dr. Facundo RegaladoRHEUMATOID FACTORon 09-63-9304HU Latex Turbid.<10.0Normal<14.0The [facility] HospitalComment on above:Performed By: #### CMP, CK, CRP, URIC #### [facility] [address] [place] [address] Dr. Facundo TorresC AUTO DIFFon 41-28-1603JVSA #0.1 103/ulNormal0.0-0.1The [facility] HospitalComment on above:Performed By: #### CBC #### [facility] [address] [place] [address] Dr. Facundo RegaladoBasophils/100 WBC (Bld)0.7 %Normal0.2-2.0[facility] Comment on above:Performed By: #### CBC #### [facility] [address] [place] [address] Dr. Facundo Begum #0.2 103/ulNormal0.0-0.7The [facility] HospitalComment on above: Performed By: #### CBC #### [facility] [address] [place] [address] Dr. Facundo Ivyosinophils/100 WBC (Bld)2.6 %Normal0.9-7.0The [facility] Comment on above:Performed By: #### CBC #### [facility] [address] [place] [address] Dr. Facundo Ivyrythrocyte distribution width (RBC) [Ratio]13.3 %Lqmzhd90.0-15.0 The [facility] HospitalComment on above:Performed By: #### CBC #### [facility] [address] [place] [address] Dr. Facundo RegaladoHematocrit (Bld) [Volume fraction]40.6 %Critically low42.0-54.0 The [facility] HospitalComment on above:Performed By: #### CBC #### [facility] [address] [place] [address] Dr. Facundo RegaladoHemoglobin (Bld) [Mass/Vol]13.7 g/dLCritically low14.0-18.0The [facility] HospitalComment on above:Performed By: #### CBC #### [facility] [address] [place] [address] Dr. Facundo Knight #0.01 10e3/ulNormal0.00-0.03The [facility] HospitalComment on above:Performed By: #### CBC #### [facility] [address] [place] [address] Dr. Facundo Knight %0.1 %Normal0.0-0.5The [facility] HospitalComment on above: Performed By: #### CBC #### [facility] [address] [place] [address] Dr. Facundo Baldwin #2.3 103/ulNormal1.2-3.8The [facility] HospitalComment on above:Performed By: #### CBC #### [facility] [address] [place] [address] Dr. Facundo Mejiahocytes/100 WBC (Bld)31.6 %Teliby51.5-60.0The [facility] HospitalComment on above:Performed By: #### CBC #### [facility] [address] [place] [address] Dr. Facundo HessUAL DIFF REQNONormalThe [facility] HospitalComment on above: Performed By: #### CBC #### [facility] [address] [place] [address] Dr. Facundo Peter (RBC) [Entitic mass]26.8 pxAeibjr75.9-34.0The [facility] HospitalComment on above:Performed By: #### CBC #### [facility] [address] [place] [address] Dr. Facundo Gee (RBC) [Mass/Vol]33.7 g/sARxlfyy18.9-35.2The [facility] HospitalComment on above:Performed By: #### CBC #### [facility] [address] [place] [address] Dr. Facudno Dumont (RBC) [Entitic vol]79.5 hGRwhyuh11.3-90.1The [facility] HospitalComment on above:Performed By: #### CBC #### [facility] [address] [place] [address] Dr. Facundo Brooke #0.7 103/ulNormal0.3-0.8The [facility] HospitalComment on above:Performed By: #### CBC #### [facility] [address] [place] [address] Dr. Facundo Barakatocytes/100 WBC (Bld)10.1 %Normal1.7-12.0The [facility] Comment on above:Performed By: #### CBC #### [facility] [address] [place] [address] Dr. Facundo Quinones #4.0 103/ulNormal1.4-6.5The [facility] HospitalComment on above:Performed By: #### CBC #### [facility] [address] [place] [address] Dr. Facundo Partidautrophils/100 WBC (Bld)54.9 %Movwkx23.0-75.0The [facility] HospitalComment on above:Performed By: #### CBC #### [facility] [address] [place] [address] Dr. Facundo Breen mean volume (Bld) [Entitic vol]9.3 fLCritically low 9.5-13.5The [facility] HospitalComment on above:Performed By: #### CBC #### [facility] [address] [place] [address] Dr. Facundo LeyT309 103/lmQlibgt506-693Hlx [facility] HospitalComment on above: Performed By: #### CBC #### [facility] [address] [place] [address] Dr. Yilan ChangRBC5.11 106/ulNormal3.30-5.40The [facility] HospitalComment on above:Performed By: #### CBC #### [facility] [address] [place] [address] Dr. Facundo DumontBC7.3 103/ulNormal4.0-11.0The [facility] HospitalComment on above: Performed By: #### CBC #### [facility] [address] [place] [address] Dr. Facundo Watson 48-73-2638WB.MB [Mass/Vol]3.96 ng/mLCritically high<=3.60 The [facility] HospitalComment on above:Performed By: #### CKMB, HSTROPN, MARY #### [facility] [address] [place] [address] Dr. Facundo Hinojosa 91-09-5658VI [Catalytic activity/Vol]604 U/LCritically high 39-308The [facility] HospitalComment on above:Performed By: #### CMP, CK, CRP, URIC #### [facility] [address] [place] [address] Dr. Facundo Woodward 10-87-2988RRC [Mass/Vol]mg/LNormal<=1.0The [facility] HospitalComment on above:Performed By: #### CMP, CK, CRP, URIC #### [facility] [address] [place] [address] Dr. Facundo BacaOGLOBINon 87-25-5534LZX84 ng/jMKwupgx29-21Wgv [facility] Comment on above:Performed By: #### CKMB, HSTROPN, MARY #### [facility] [address] [place] [address] Dr. Facundo Lowery 14(COMP METB)on 12-30-4981Qnshdyz [Mass/Vol]4.2 g/dLNormal 3.4-5.0The [facility] HospitalComment on above:Performed By: #### CMP, CK, CRP, URIC #### [facility] [address] [place] [address] Dr. Yilan ChangAlbumin/Globulin [Mass ratio]1.4 {ratio}NormalThe [facility] HospitalComment on above:Performed By: #### CMP, CK, CRP, URIC #### [facility] [address] [place] [address] Dr. Facundo Gallagher [Catalytic activity/Vol]129 U/XYtofvh56-634Ujp [facility] HospitalComment on above:Performed By: #### CMP, CK, CRP, URIC #### [facility] [address] [place] [address] Dr. Facundo SternT [Catalytic activity/Vol]37 U/XYwxwmo67-23Nal [facility] HospitalComment on above:Performed By: #### CMP, CK, CRP, URIC #### [facility] [address] [place] [address] Dr. Facundo RegaladoAnion gap [Moles/Vol]11.6 mmol/LNormalThe [facility] Comment on above:Performed By: #### CMP, CK, CRP, URIC #### [facility] [address] [place] [address] Dr. Facundo Macedo [Catalytic activity/Vol]33 U/QRmacne33-58Hhf [facility] HospitalComment on above:Performed By: #### CMP, CK, CRP, URIC #### [facility] [address] [place] [address] Dr. Facundo RegaladoBilirubin [Mass/Vol]0.3 mg/dLNormal0.2-1.0The [facility] Comment on above:Performed By: #### CMP, CK, CRP, URIC #### [facility] [address] [place] [address] Dr. Facundo RegaladoCalcium [Mass/Vol]9.0 mg/dLNormal8.5-10.1[facility] Comment on above:Performed By: #### CMP, CK, CRP, URIC #### [facility] [address] [place] [address] Dr. Facundo RegaladoChloride [Moles/Vol]104 mmol/PHnrjec27-557Pyq [facility] Comment on above:Performed By: #### CMP, CK, CRP, URIC #### [facility] [address] [place] [address] Dr. Facundo RegaladoCO2 [Moles/Vol]27.2 mmol/AUjlbms19.0-32.0The [facility] Comment on above:Performed By: #### CMP, CK, CRP, URIC #### [facility] [address] [place] [address] Dr. Facundo RegaladoCreatinine [Mass/Vol]1.03 mg/dLNormal0.70-1.30The [facility] HospitalComment on above:Performed By: #### CMP, CK, CRP, URIC #### [facility] [address] [place] [address] Dr. Facundo RegaladoGlobulin (S) [Mass/Vol]3.1 g/dLNormalThe [facility] HospitalComment on above:Performed By: #### CMP, CK, CRP, URIC #### [facility] [address] [place] [address] Dr. Facundo RegaladoGlucose [Mass/Vol]75 mg/oVAzkcwe53-188LtcOur [facility] Of [facility] Comment on above:Performed By: #### CMP, CK, CRP, URIC #### [facility] [address] [place] [address] Dr. Facundo RegaladoPotassium [Moles/Vol]3.8 mmol/LNormal3.5-5.1[facility] Comment on above:Performed By: #### CMP, CK, CRP, URIC #### [facility] [address] [place] [address] Dr. Facundo RegaladoProtein [Mass/Vol]7.3 g/dLNormal6.4-8.2The [facility] Comment on above:Performed By: #### CMP, CK, CRP, URIC #### [facility] [address] [place] [address] Dr. Facundo RegaladoSodium [Moles/Vol]139 mmol/JXvbgxy413-124CofOur [facility] Of [facility] Comment on above:Performed By: #### CMP, CK, CRP, URIC #### [facility] [address] [place] [address] Dr. Facundo RegaladoUrea nitrogen [Mass/Vol]19.0 mg/dLNormal6.4-19.3The [facility] HospitalComment on above:Performed By: #### CMP, CK, CRP, URIC #### [facility] [address] [address] [address] Facundo RegaladoUrea nitrogen/Creatinine [Mass ratio]18.4 mg/mgNormalThe [facility] HospitalComment on above:Performed By: #### CMP, CK, CRP, URIC #### [facility] [address] [address] [address] Facundo John RATE WESTERGRENon 76-02-4156WZM RATE15 mm/hrNormal<=15The [facility] on above:Performed By: #### CMP, CK, CRP, URIC #### [facility] [address] [place] [address] Dr. Facundo TomlinsonOPOLURDES, HIGH SENSITIVITYon 51-57-5695PFZXWZ4.9 pg/mLNormal 4.0-76.1[facility] on above:Result Comment: CUT-OFF POINTS HAVE BEEN ESTABLISHED BASED ON THE FOURTH UNIVERSAL DEFINITIONS OF MYOCARDIAL INFARCTION. THE UPPER REFERENCE LIMIT (URL) OF TROPONIN, DEFINED THE 99TH PERCENTILE OF cTnI DISTRIBUTION IN A REFERENCE POPULATION, HAS BEEN CONFIRMED THE DECISION THRESHOLD FOR IN DIAGNOSIS.Performed By: #### CKMB, HSTROPN, MARY #### [facility] [address] [place] [address] Dr. Facundo RegaladoURIC ACID SERUMon 86-20-4624Rdpsz [Mass/Vol]7.0 mg/dLNormal 3.5-7.2The [facility] HospitalComment on above:Performed By: #### CMP, CK, CRP, URIC #### [facility] [address] [place] [address] Dr. Facundo RegaladoCT CSPINE WO CONon 07-13-8210AM CSPINE WO CONEXAMINATION: CT CSPINE WO CON HISTORY: Injury of [...] Electronically authenticated by: CASTILLO MCGOWAN Date: 2021-05-14 20:37[facility] Vital Signs Date TimeVital SignValuePerforming CoofaptbfNrnzlgir79-80-2023 16:27-0400Body pcvxro978.5 cmBarry Nieto MD Work Phone: [phone] [place], [place] [address]09-24-2025 16:27-0400 Body mass index (BMI) [Percentile] Per age and sex91.6 %Barry Nieto MD Work Phone: [phone]09-24-2025 16:27-0400 Body mass index (BMI) [Ratio]28.5 kg/m2Barry Nieto MD Work Phone: [phone] [place], [place] [address]12[address]09-24-2025 16:27-0400 Body lcsjurufxou68.1 [degF]Barry Nieto MD Work Phone: [phone] [place], [place] [address]09-24-2025 16:27-0400 Body fsuqmq38.74 kgBarry Nieto MD Work Phone: [phone]09-24-2025 16:27-0400 Heart rate68 /minBarry Nieto MD Work Phone: [phone] [place], [place] [address]09-24-2025 16:27-0400 Respiratory rate18 /minBarry Nieto MD Work Phone: [facility]09-24-2025 16:27-0400 SaO2% (BldA) [Mass fraction]98 %Barry Nieto MD Work Phone: [facility]06-10-2025 12:09-0400 Body .5 [degF][facility]06-10-2025 12:09-0400Diastolic blood fjtiueta92 mm[Hg][facility] 01-03-2025 12:09-0400Heart rate72 /minKindred Healthcare 01-03-2025 12:09-1183KvO9% (BldA) [Mass fraction]97 %[facility]06-10-2025 12:09-0400Systolic blood ucjygztp334 mm[Hg][facility]09-24-2024 11:36-0400Body bxykac482.3 cmBarry Nieto MD Work Phone: [facility]Dkltiwxaxb31-68-1316 11:36-0400Body mass index (BMI) [Percentile] Per age and sex94.85 %Barry Nieto MD Work Phone: [facility] CenterNfpkleprsg78-43-7845 11:36-0400Body mass index (BMI) [Ratio]29.24 kg/m2Barry Nieto MD Work Phone: [facility] CenterLykdwnccyl69-15-6461 11:36-0400Body temperature 97.5 [degF]Barry Nieto MD Work Phone: [facility] CenterJhcmkggyjp46-92-0932 11:36-0400Body .81 kgBarry Nieto MD Work Phone: [facility] CenterUjwbeqzrfa86-62-3099 11:36-0400Diastolic blood yjonxxvl83 mm[Hg]Barry Nieto MD Work Phone: [facility] CenterHmhfajbozy16-43-4366 11:36-0400Heart rate70 /min Barry Nieto MD Work Phone: noMT Hhphixzxbu44-34-7166 11:36-0400Respiratory rate20 /minBarry Nieto MD Work Phone: noProgress [facility] HospitalOymaraifyl34-59-3976 11:36-4703HsS2% (BldA) [Mass fraction]98 %Barry Nieto MD Work Phone: noProgress [facility] HospitalVgirgdfmjy61-50-5023 11:36-0400Systolic blood ugbqkusn527 mm[Hg]Barry Nieto MD Work Phone: [employer] Huhrdrqcsn10-89-0047 13:35-0400Body .35 cmAmblulu Belle Other [employer] Other 447819-42-6922 13:35-0400Body mass index (BMI) [Ratio] 29.79 kg/w4HfzixLeandra Belle Other [employer] Other 06-03-2023 13:35-0400Body .54 kgLeandra Belle Other [employer] Other 06-03-2023 13:35-0400Diastolic blood nsfwlgyg12 mm[Hg] Leandra Belle Other [employer] Other 06-03-2023 13:35-0400Respiratory rate18 /minLeandra Belle Other [employer] Other 06-03-2023 13:35-5690PlL4% (BldA) [Mass fraction]99 % Leandra Belle Other [employer] Other 06-03-2023 13:35-0400Systolic blood mm[Hg] Leandra Belle Other [employer] Other 04-10-2023 18:20-0400Body gseqaa876.26 cmAaron Belle Other [employer] Other 04-10-2023 18:20-0400Body mass index (BMI) [Ratio] 30.57 kg/y1Eheeblulu Belle Other [employer] Other 04-10-2023 18:20-0400Body srvcuutdlpo582.3 [degF]Leandra Belle Other [employer] Other 04-10-2023 18:20-0400Body siyeho86.9 kgLeandra Belle Other [employer] Other 04-10-2023 18:20-0400Respiratory rate18 /minLeandra Belle Other [employer] Other 04-10-2023 18:20-8439CyH1% (BldA) [Mass fraction]97 % Leandra Belle Other [employer] Other 08-02-2022 19:00-0400Body zwjbun095.72 cmSariel Negron Other [employer] Other 08-02-2022 19:00-0400Body mass index (BMI) [Ratio] 29.65 kg/i4PobtieeolTesha Negron Other [employer] Other 08-02-2022 19:00-0400Body skclffyumbj33.8 [degF] Tesha Negron Other [employer] Other 08-02-2022 19:00-0400Body .45 kgStnelson Negron Other [employer] Other 08-02-2022 19:00-0400Diastolic blood mm[Hg] Tesha Negron Other [employer] Other 08-02-2022 19:00-0400Respiratory rate18 /minSariel Negron Other [employer] Other 08-02-2022 19:00-2870LcD2% (BldA) [Mass fraction]98 % Tesha Rehmanault Other [employer] Other 08-02-2022 19:00-0400Systolic blood mvahxsyy840 mm[Hg] Tesha Jamil Other [employer] Other 07-28-2022 17:15-0400Body hwvoee917.72 cmAaron Belle Other [employer] Other 07-28-2022 17:15-0400Body mass index (BMI) [Ratio] 30.25 kg/c0CczhyLeandra Belle Other [employer] Other 07-28-2022 17:15-0400Body jsomouvitje71 [degF]Leandra Belle Other [employer] Other 07-28-2022 17:15-0400Body hmaznp22.27 kgLeandra Belle Other [employer] Other 07-28-2022 17:15-0400Diastolic blood peajwzkw70 mm[Hg] Leandra Belle Other [facility] [employer] Other 07-28-2022 17:15-0400Respiratory rate18 /minLeandra Belle Other [facility] [employer] Other 07-28-2022 17:15-7360PdE9% (BldA) [Mass fraction]99 % Leandra Belle Other [place] [employer] Other 07-28-2022 17:15-0400Systolic blood ykfeyqyc829 mm[Hg] [facility]andra Belle [facility] [employer] Other 10-20-2021 23:35-0400Body prxyzm462.72 cmMD Barry Nieto Work Phone: [facility]10-20-2021 23:35-0400 Body mass index (BMI) [Percentile] Per age and sex97.7 %MD Barry Nieto Work Phone: [facility]10-20-2021 23:35-0400 Body mass index (BMI) [Ratio]30.1 kg/m2MD Barry Nieto Work Phone: [facility]10-20-2021 23:35-0400 Body rpnmkvhyjna00.2 [degF]MD Barry Nieto Work Phone: [facility]10-20-2021 23:35-0400 Body ubfkpl91.81 kgMD Barry Nieto Work Phone: [facility]10-20-2021 23:35-0400 Diastolic blood fkhumqlw70 mm[Hg]MD Barry Nieto Work Phone: [facility]10-20-2021 23:35-0400 Heart wmnb216 /minMD Barry Nieto Work Phone: [facility]10-20-2021 23:35-0400 Respiratory rate20 /minMD Barry Nieto Work Phone: [facility]10-20-2021 23:35-0400 SaO2% (BldA) [Mass fraction]100 %MD Barry Nieto Work Phone: [facility]10-20-2021 23:35-0400 Systolic blood xgywvlvm192 mm[Hg]MD Barry Nieto Work Phone: [facility] Encounters Encounter DateEncounter TypeCare ProviderFacilityStart: 04-19-2025 End: 10-42-6549fpodxsgzguNmtp Naderer MD Work Phone: [facility] Work Phone: Start: 04-19-2025 End: 96-58-2642Mdqkyam encounter procedureMonie Milian NP--[facility] Work Phone: Start: 04-19-2025 End: 68-24-2269Jwnqkyb encounter statusMonie Milian NP-[facility] Campustart: 02-09-2025 End: 68-45-9934atmbafwbmxZyrx T AMESFacility:[facility] Start: 01-03-2025 End: 18-85-5440nqsccpnnmyGzuzeehurSouthwest General Health Center Work Phone: Start: 01-03-2025 End: 76-47-8391Ikadsyw encounter procedureUn[facility] Work Phone: Start: 04-19-2024 End: 15-71-4073Vcppeo flowsKuldip Nieto MD Work Phone: [facility] FMStart: 04-19-2024 End: 55-88-7596Khzapb flowsKuldip Nieto MD Work Phone: [facility] FMStart: 04-19-2024 End: 65-75-7387Wjlrfic encounter procedureBarry Nieto MD Work Phone: [facility] Work Phone: Start: 04-19-2024 End: 82-20-8798Nhknvoss preventive med est patient 18-39 yrsBarry Nieto MD Work Phone: [facility] FMComment on above:Annual physical exam (Primary Dx)Start: 04-19-2024 End: 90-30-6161knrqlaavxaMMVE LANCERNot AvailableStart: 09-28-2023 End: 42-52-8655tvlshnedziESSE AICHHOLZNot AvailableStart: 99-34-1168Zaypszs encounter statusBarry Nieto MD Work Phone: [facility] HealthcareStart: 12-27-2022 End: 34-23-0206jwdidbfataLeiup Keller Other [employer] Other Start: 44-61-9138Omkvwh outpatient visit 25 minutes Leandra KellerFPG [facility] ClydeStart: 11-03-2022 End: 22-07-9214smopmnnnezXmzqe Keller Other [employer] Other Start: 10-57-4732Ifemmk outpatient visit 15 minutes Leandra KellerFP[facility] ClydeStart: 02-25-2022 End: 16-86-8958vnkwicjbzrZljtqwktw Jamil Other [employer] Other Start: 40-42-0750Gulntc outpatient visit 15 minutes Tesha JamilFPG Urgent Care ClydeStart: 02-20-2022 End: 13-44-2347rxfeijajgaHosvu Keller Other [employer] Other Start: 51-57-8148Iavtbe outpatient new 30 minutesAmber KellerFPG Urgent Care ClydeStart: 02-19-2022 End: 63-77-1339rvnfctaisoLWX MONIE AICHHOLZFacility:H0Mbfir: 05-16-2021 End: 21-30-6030djdzixnoxwOH JAE MARKERFacility:C7Zwluj: 05-15-2021 End: 68-46-1841Acwaxpavd department patient visitMD Barry Nieto Work Phone: [facility]-Emergency RoomStart: 05-14-2021 End: 39-15-2768yubbphpxhcFK BARRY Wesley NADERERFacility:H1 Procedures DateProcedureProcedure DetailPerforming ClinicianStart: 40-50-9121Vsfti Strep (POC) Plan of Treatment DateCare ActivityDetailAuthorStart: 04-19-2024 End: 49-48-0958Tztqeun encounter cnkyyklau60/24/2024 11:30 AM EDT Office Visit [facility] [address] [place] [address] Barry Nieto MD [address] [place] [address] ArrivedNOMS CWM FMComment on above:ArrivedPatient referralMer[facility] Health [facility] Payers DatePayer CategoryPayerPolicy [id number] 2018-Present [phone] [address] [place] [address] [id number] [id number] 2..[id number] Pay [id number] Social History DateTypeDetailFacilityStart: 05-15-2021 End: 50-32-6563Fvwlnmn smoking status NHISNever smoked tobacco (finding) [facility] CtrStart: 49-58-7038Vsh [facility] At [facility]tart: 09-28-2023 End: 03-50-9778Msg Assigned At [facility] HealthcareStart: 09-28-2023 End: 49-90-0992Bhoqolq of Social functionDELTA COMMUNITY MEDICAL [facility] HealthcareStart: 21-70-1276Ekd assigned at [facility] centerNot [facility] HospitalStart: 42-74-6331AllBqum (finding) [facility] History of Present illness Narrative 04-19-2024 Note Date & VfsyNluqWgauepkc02-17-9873 History of Present illness Narrative* Barry Nieto MD - 04/19/2024 12:10 PM EDTAssociated Problem(s): Annual physical exam Form completed. Discussed proper diet and regular aerobic exercise. Need aerobic exercise 5-6 days a week for 30 minutes at a time. Smaller portions and limit total calories. Colonoscopy after age 45. Tetanus every 10 years. Advised not to smoke. * Barry Nieto MD - 04/19/2024 11:30 AM EDT Images from the original note were not included. Subjective Patient ID: Siddhartha Kimball is a 18 y.o. male who presents for Follow-up (Check up). Presents for annual wellness visit. Patient feels well today. Needs form completed for work. 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 Will start [employer] soon. Overall feels well and no [...] Advised not to smoke. [facility] 12-27-2022 Note Date & EmqcNcuzOqunzuuf35-89-6624 Evaluation note* Encounter Date Diagnosis Assessment Notes Treatment Notes Treatment Clinical Notes Dec, Physical exam, pre-employment (I CD-10 - Z02.1) Patient medically cleared for employment, see scanned documentation. Discussed the need to report any and all injuries to supervisors, managers, or parents as they present, do not try to work throughthem as they will only make injury worse. Discussed importance of proper nutrition and hydration with increased physical activity. Adhere to safety guidelines. Patient to follow up with PCP for any further health concerns or questions. Patient verbalizes understanding and is agreeable with treatment plan [employer] Other Evaluation note 11-03-2022 Note Date & YmufSlhiYusbohhn93-35-0384 Evaluation note* Encounter Date Diagnosis Assessment Notes Treatment Notes Treatment Clinical Notes Oct, Rash and nonspecific skin erupti on (ICD-10 - R21) Discussed diagnosis with father. Will send in rx of steroid to take as directed. Advised to take medications with food and plenty of water, complete entire course even if feeling better. Continue useof lrab-unj-kzxcjem Benadryl to block histamine reaction. Patient instructed not to scratch or pickat rash. May use hydrocortisone cream or calamine [...] understanding and is agreeable to treatment plan. [employer] Other Evaluation note 02-25-2022 Note Date & QqaoWuseHhsnzchb51-24-3580 Evaluation note* Encounter Date Diagnosis Assessment Notes Treatment Notes Treatment Clinical Notes Feb, Acute urticaria (ICD-10 - L50.8) Today we are treating for allergic reaction. Recommend to take medication as prescribed and start oral steroid tonight . Start all other medication today. Follow up with primary care provider to discuss reaction. Take Zyrtec teice daily Feb,llergic reaction, initial encounter (ICD-10 - T78.40XA)Prescribed Epipen in case face swelling occurs before you see pcp again. Seek emergency treatment if you have to use it [employer] Other Evaluation note 02-20-2022 Note Date & KiyeYmuqBywdeite32-26-6673 Evaluation note* Encounter Date Diagnosis Assessment Notes Treatment Notes Treatment Clinical Notes Jan, Poison alberto dermatitis (ICD-10 - [...] understanding and is agreeable to treatment plan [employer] Other Evaluation note Note Date & TypeNoteFacilityEvaluation noteNo assessment information available [facility] Evaluation note Note Date & TypeNoteFacilityEvaluation note* Diagnosis Annual physical exam- Primary Routine general medical examination at a health care facility documented in this encounter [facility] Evaluation note Note Date & TypeNoteFacilityEvaluation note* Diagnosis Onset Date Resolution Status Admit Date Adult wellness visit acuteSeptember 2024 3:48pmOverweight (BMI 25.0-29.9)acuteSeptember 2024 3:48pm [facility] Work Phone: History general Narrative - Reported Note Date & TypeNoteFacilityHistory general Narrative - Reported* Type Description Date Medical History EXERCISE INDUCED ASTHMA Hospitalization HistoryEEG [employer] [facility] [employer] Other Reason for referral (narrative) Note Date & TypeNoteFacilityReason for referral (narrative)No reason for referral information availableOhiohealth Southeastern Medical Center Work Phone: Chief Complaint and Reason for Visit Chief Complaint fever Chief Complaint Admit Date cold/left ear clogged January 03, 2025 11 :43am Chief Complaint Admit Date Work Approval April 19, 2025 3:48pm Reason for Visit Admit Date Adult wellness visit April 19 3:48pm Overweight (BMI 25.0-29.9) March 3:48pm Advance Directives Advance Directive Response Recorded Date/ Time Advance Directives No May 15, 2021 11:04pm Advance Directive Response Recorded Date/ Time Advance Directives No May 16, 2021 12:04am Summary Purpose Family History No Family History Records FoundNo Family History Records FoundNo Family History Records Found Additional Source Comments Goals (unrecognized section and content) Goals may be documented in a n alternate sectionNo InformationNo InformationNo InformationNo InformationGoals may be documented in an alternate sectionGoals may be documented in an alternate section REASON FOR VISIT (unrecogniz ed section and content) ReasonCommentsFollow-upCheck up (unrecognized sect ion and content) No Status Records FoundNo Status Records FoundNo Status Records Found INFORMATION SOURCE (unrecogn ized section and content) DATE CREATED AUTHOR 02/22/2022 [facility] DATE CREATED AUTHOR AUTHOR'S ORGANIZ ATION 04/21/2024 [facility] DATE CREATED AUTHOR AUTHOR'S ORGANIZ ATION 02/13/2025 [facility] Care Teams (unrecognized sec tion and content) Team MemberRelationshipSpecialtyStart DateEnd Date Barry Nieto MD [address] [place] [address] PCP - GeneralFamily Medicine09/18/23 Monie Milian NP [address] [place] [address] [facility] Monie Milian NP [address] [place] [address] Nurse PractitionerFamily Medicine09/18/23Team MemberRelationshipSpecialtyStart DateEnd Date Barry Nieto MD [address] [place] [phone] PCP - [facility]09/18/23 Monie Milian NP [address] [place] [address] PCP - [facility]11/25/23 Monie Milian NP [address] [place] [address] Nurse Pract[facility]erS[facility]09/18/23 Team Status: Active Member Role Status Dates Barry Nieto MD Primary Care Provider Active Team Status: Inactive Member Role Status Dates Barry Nieto MD Primary Care Provider Active S tart: January 03, 2025 End: January 03JACKELIN Stephen-CAtshannan ProviderActiveStart: January 03, 2025 End: January 03, 2025 Team Status: Inactive Member Role Status Dates Barry Nieto MD Primary Care Provider Active S tart: April 19, 2025 End: April 19, 2025Monie Milian NP-Ramiro ProviderActiveStart: April 19, 2025 End: April 19, 2025 FOR RECORDS PERTAINING TO PATIENTS WHO [...] BE BASED ON THE PRIMARY CLINICAL RECORDS. [facility] [employer] [facility]. provides no warranty or guarantee of the accuracy or completeness of information in this document.
--- OUTSIDE RECORDS SUMMARY | 2025-07-23 18:31 | XMS_ITS | Clinical Summary ---
Author Organization [facility] Address [address] [place] [address] Care Team Providers Care Millinery Salesperson Name Role Phone Monie Milian NP Unavailable [phone] Barry Nieto MD Primary Care Provider [phone] Allergies No known active allergies Medications MedicationSigDispense QuantityRefillsLast FilledStart DateEnd DateStatus albuterol HFA 90 mcg/act inhaler Inhale 2 puffs every 6 (six) hours if needed for wheezing or shortness of breath (and 15 minutes prior to physical activity)Active Active Problems ProblemNoted DateDiagnosed DateSeasonal allergic rhinitis due to pollen 09/28/2023GAD (generalized anxiety disorder)09/28/2023Vitamin D deficiency 09/28/2023Obesity (BMI 30-39.9)09/28/2023nnual physical exam09/28/2023 Assessment & Plan (04/19/2024 12:10 PM EDT): [...] yearly and prn Lesion of skin of nose09/28/2023 Assessment & Plan (09/28/2023 2:44 PM EST): Pt reports this has been present over a year, and is getting larger It appears to look like a white head , however pt states when attempts to express something out with squeezing it, nothing comes out Family is requesting a referral to dermatology Resolved Problems ProblemNoted DateDiagnosed DateResolved DateElevated CPKKnee pain, right wiwxybku53 Family History Medical HistoryRelationNameCommentsNo Known ProblemsFatherNo Known Problems MotherRelationNameStatusCommentsFatherMother Social History Tobacco UseTypesPacks/DayYears UsedDateSmoking Tobacco: Never Tobacco Cessation:Counseling Given: Not Answered PHQ-2AnswerDate RecordedPatient Health Questionnaire-2 Rbunq314Sex and Gender InformationValueDate RecordedSex Assigned at BirthNot on fileLegal Sex Male10/08/2022 8:28 PM EDTGender IdentityNot on fileSexual OrientationNot on file Last Filed Vital Signs Vital SignReadingTime TakenCommentsBlood Sgenqocz610/5209 11:36 AM EDT Cpqup450304/19/2024 11:36 AM HDVSapeyapwjzt37.4 ??C (97.5 ??F)04/19/2024 11:36 AM EDTRespiratory Rhpe391604/19/2024 11:36 AM EDTOxygen Gsspyvslkz37%04/19/2024 11:36 AM EDTInhaled Oxygen Concentration--Zjiufo97.8 kg (198 lb)04/19/2024 11:36 AM MLQMmbjyz618.3 cm (5' 9 )04/19/2024 11:36 AM EDTBody Mass Index29.24004/19/2024 11:36 AM EDTBody Mass Index Toxpybhqgr50.85%04/19/2024 11:36 AM EDTGrowth Chart: [facility] (Boys, 2-20 Years) Plan of Treatment Not on file Insurance [address] [place] [address] Care Teams Team MemberRelationshipSpecialtyStart DateEnd Date Barry Nieto MD PCP - GeneralFamily Medicine09/18/23 Monie Milian NP Nurse PractitionerFamily Medicine09/18/23
--- NOTE | 2025-07-23 19:14 | PC.NURSE ---
i gave this patient verbal and written discharge orders and this patient voices yes to understanding these. at time of discharge this patient voices no concerns, needs and shows no signs of distress
--- NOTE | 2025-07-23 19:20 | ED.GENADUL1 ---
HPI HPI - General Adult General Chief complaint: Extremity Injury, Lower Stated complaint: HURT RIGHT ANKLE Time Seen by Provider: 07/23/25 17:51 Source: patient and family Mode of arrival: Wheelchair Limitations: no limitations History of Present Illness HPI narrative: Patient is a previously healthy 19-year-old male presenting to the emergency department for evaluation of a right ankle injury. Patient states he has sprained his ankle numerous times in the past. He states that today he was stepping off a porch when he landed awkwardly on his right ankle. He was able to bear weight afterwards, but has pain with walking. He denies numbness/tingling/weakness in the foot. He denies any other injuries. No prior surgeries to the foot. Related Data Home Medications ?Medication ?Instructions ?Recorded ?Confirmed No Known Home Medications 07/23/25 07/23/25 Allergies Allergy/AdvReac Type Severity Reaction Status Date / Time No Known Drug Allergies Allergy Verified 07/23/25 17:52 Opioid HPI Opioid Management Most Recent Opioid Data: Last Pain Scale 2 04/04/25, 10:25 Review of Systems ROS Status of ROS 10 or more systems reviewed and unremarkable except as noted in history and below PFSH PFSH Social History Little interest or pleasure in doing things: not at all Feeling down, depressed, or hopeless: not at all Exam Narrative Exam Narrative: CONSTITUTIONAL: Well-appearing, answering questions and following commands appropriately SKIN: Was warm and dry. EYES: Sclerae white. EARS, NOSE, THROAT: Moist oral mucosa. RESPIRATORY: Nonlabored respirations CARDIOVASCULAR: Normal rate and regular rhythm. There is no S3, S4, murmur, rub. 2+ DP pulse on the right.. GASTROINTESTINAL: Abdomen is nondistended. MUSCULOSKELETAL: There is soft tissue swelling over the lateral malleoli. Full range of motion of the right foot. The foot is warm and well-perfused. Compartments soft and compressible. NEUROLOGIC: Patient is awake and alert. 5/5 strength in the right foot and ankle. Sensation intact to light touch on the right foot and ankle. Constitutional Vital Signs, click to edit/add: Last Vital Signs Temp 98.6 F 07/23/25 17:52 Pulse 70 07/23/25 17:52 Resp 16 07/23/25 17:52 BP 130/80 07/23/25 17:52 Pulse Ox 98 07/23/25 17:52 O2 Del Method Room Air 07/23/25 17:52 Course Vital Signs Vital signs: Vital Signs Temperature 98.6 F 07/23/25 17:52 Pulse Rate 70 07/23/25 17:52 Respiratory Rate 16 07/23/25 17:52 Blood Pressure 130/80 07/23/25 17:52 Pulse Oximetry 98 07/23/25 17:52 Oxygen Delivery Method Room Air 07/23/25 17:52 Temperature 98.6 F 07/23/25 17:52 Pulse Rate 70 07/23/25 17:52 Respiratory Rate 16 07/23/25 17:52 Blood Pressure 130/80 07/23/25 17:52 Pulse Oximetry 98 07/23/25 17:52 Oxygen Delivery Method Room Air 07/23/25 17:52 Medical Decision Making MDM Narrative Medical decision making narrative: 19-year-old previously healthy male presenting to the emergency department after rolling his right ankle just prior to arrival. There is soft tissue swelling over the right lateral malleoli, otherwise the foot is neurovascularly intact. Differential diagnosis includes ankle fracture, ankle sprain. X-rays ordered. X-rays of the right ankle independently reviewed and interpreted by myself and radiology demonstrated soft tissue swelling without acute osseous abnormalities. I do believe the patient is stable for discharge. Patient's presentation is most likely consistent with ankle sprain. They were instructed to follow up with their PCP for further care. Return precautions were given including any new or worsening symptoms. They were placed in an Jose bandage and given RICE precautions. Patient understands and agrees to the plan. FINAL IMPRESSION: #Acute right ankle sprain DISPOSITION: Discharged home CONDITION: Good Imaging Data ankle xray: Attestation: I personally reviewed and interpreted this imaging study as follows: Radiologist's impression: ITS Impressions Ankle X-Ray 07/23/25 17:57 IMPRESSION: Lateral soft tissue swelling. No acute displaced fracture. Impression dictated by: Azael Parr M.D. 07/23/2025 6:16 PM Dictation [facility] Electronically authenticated by: [id number] Y Date: 07/23/2025 18:16 Discharge Plan Discharge Chief Complaint: Extremity Injury, Lower Clinical Impression: Ankle sprain Patient Disposition: Home, Self-Care Time of Disposition Decision: 18:31 Condition: Good Mode of Transportation: Private Vehicle Prescriptions / Home Meds: No Action No Known Home Medications Print Language: Luxembourger Instructions: Ankle Sprain (ED) Referrals: Barry Nieto MD [Primary Care Provider, Family Practice] - 1 week Discharge Date/Time: 07/23/25 19:13
== END 2025-07-23 19:13 | disposition home or self-care (01) ==
PROVIDERS: Emergency Provider Student in an Organized Health Care Education/Training Program; PCP Family Medicine
DX: S93.401A Sprain of unspecified ligament of right ankle, initial encounter (principal); X50.0XXA Overexertion from strenuous movement or load, initial encounter
CPT/HCPCS: 73610; 99283